=== PATIENT | female | born 1990 | race Caucasian/White ===

== ENCOUNTER 2017-07-09 19:40 | Emergency (ER) | payer OTHER ==
[~2017-07-09] VITALS: Ht 157.5 cm; Wt 73.5 kg
[2017-07-09 19:50] VITALS: BP 111/67
[2017-07-09] MEDS ORDERED: PREN-546 PO (19:53)
--- NOTE | 2017-07-09 22:29 | NUR ---
PT TAKEN TO BED 12
[2017-07-09] MEDS ORDERED: NACL 0.9% 1,000 ML IV SCH (23:29)
--- NOTE | 2017-07-09 23:29 | NUR ---
26Y/F PRESENTS TO ER C/O N/V. PT STATES SHE HAS HAD WORSENING N/V FOR 2 WEEKS. PT STATES SHE IS 10 WEEKS , LMP 05/20/17. PT DENIES DIARRHEA, PT HAS DIZZINESS AND FEELS LIKE SHE IS GOING TO "PASS OUT SOMETIMES". PT IN BED, SIDE RAIL UP X1, ER MD NOTIFIED OF PT STATUS. THIS IS THE PT 3RD .
[2017-07-09] MEDS ORDERED: DEXT 5% / NACL 0.9% 500 ML IV ONE (23:30)
[2017-07-09] MEDS ORDERED: ONDANSETRON 4 MG/2 ML VIAL IVP ONE (23:30)
[2017-07-09 23:52] LABS: BASOPHILS # (AUTO) 0.4 K/uL (0.00-0.22); BASOPHILS % (AUTO) 4.6 % (0.0-2.0); EOSINOPHILS # (AUTO) 0.1 K/uL (0-0.4); EOSINOPHILS % (AUTO) 0.9 % (0.0-4.0); HEMATOCRIT 36.3 % (36-48); HEMOGLOBIN 12.6 g/dL (12.0-16.0); LYMPHOCYTES # (AUTO) 1.6 K/uL (2.5-16.5); LYMPHOCYTES % (AUTO) 21.5 % (20.5-51.1); MEAN CORPUSCULAR HEMOGLOBIN 32 pg (27-31); MEAN CORPUSCULAR HGB CONC 35 g/dL (33-37); MEAN CORPUSCULAR VOLUME 92 fL (80-94); MONOCYTES # (AUTO) 0.6 K/uL (0.8-1.0); MONOCYTES % (AUTO) 8.1 % (1.7-9.3); NEUTROPHILS # (AUTO) 4.9 K/uL (1.8-7.7); NEUTROPHILS % (AUTO) 64.9 % (42.2-75.2); PLATELET COUNT (AUTO) 275 K/uL (140-450); RED BLOOD CELL COUNT(AUTO) 3.94 MIL/uL (4.20-5.40); RED CELL DISTRIBUTION WIDTH 11.2 % (11.6-13.7); WHITE BLOOD COUNT (AUTO) 7.6 K/uL (4.8-10.8)
[2017-07-09 23:58] LABS: APPEARANCE,URINE CLEAR (CLEAR); BILIRUBIN,URINE NEGATIVE (NEGATIVE); BLOOD, URINE TRACE-I (NEGATIVE); COLOR,URINE YELLOW (YELLOW); LEUKOCYTE ESTERASE ,URINE NEGATIVE (NEGATIVE); NITRITE, URINE NEGATIVE (NEGATIVE); UGLUCOSE NEGATIVE (NEGATIVE)
[2017-07-10 00:05] LABS: ANION GAP 9.8 (8-16); CARBON DIOXIDE 26.7 mmol/L (21-32); CREATININE 0.5 mg/dL (0.6-1.3); POTASSIUM 3.5 mmol/L (3.5-5.1)
[2017-07-10 00:11] LABS: ALBUMIN 3.5 g/dL (3.4-5.0); TOTAL BILIRUBIN 0.3 mg/dL (0.0-1.0)
[2017-07-10 00:19] LABS: RBC,URINE 0-5 (RARE) /HPF (0-5); WBC,URINE 0-5 (RARE) /HPF (0-5)
--- NOTE | 2017-07-10 01:10 | NUR ---
IVF OF 1L NS ENDED AT 0110 , 999ML INFUSED.
--- NOTE | 2017-07-10 01:10 | NUR ---
DEXTROSE/NS IVF END TIME OF 0110 INFUSED 900ML.
[2017-07-10 01:13] VITALS: BP 122/70
--- NOTE | 2017-07-10 01:13 | NUR ---
Patient discharged with v/s stable. Written and verbal after care instructions given and explained. Patient alert, oriented and verbalized understanding of instructions. Ambulatory with steady gait. All questions addressed prior to discharge. ID band removed. Patient advised to follow up with PMD. Rx of zofran 4mg, pyridoxine 50mg given. Patient educated on indication of medication including possible reaction and side effects. Opportunity to ask questions provided and answered.
== END 2017-07-10 01:13 | disposition home or self-care (01) ==
LOC: MED 19:40
DX: O21.0 Mild hyperemesis gravidarum (principal); Z3A.01 Less than 8 weeks gestation of pregnancy; Z79.899 Other long term (current) drug therapy
CPT/HCPCS: 36415; 80053; 81001; 81025; 83690; 85025; 96361; 96374; 99284; J2405; J7030; J7042